=== PATIENT | female | born 1960 | race Two or more races ===

== ENCOUNTER → 2019-01-31 17:55 | Outpatient (CLI) | payer BC ==
[2019-01-31 20:24] LABS: HEMATOCRIT 27.7 % (36.0-48.0); HEMOGLOBIN 8.5 g/dL (12-16); MCH 26.2 pg (26.0-34.0); MCHC 30.7 g/dL (31.0-37.0); MCV 85.2 fL (80.0-100.0); RBC 3.25 10x6/uL (4.00-5.40)
[2019-01-31 20:38] LABS: CALC OSMOLALITY 278 mosm/kg (275-300); CALCIUM 7.7 mg/dL (8.5-10.1); CARBON DIOXIDE 31.5 mmol/L (21.0-32.0); CHLORIDE - SERUM 101 mmol/L (98-107); CREATININE - SERUM 0.5 mg/dL (0.6-1.3); GLUCOSE 109 mg/dL (74-106); POTASSIUM - SERUM 4.4 mmol/L (3.5-5.1); SODIUM 139 mmol/L (136-145); UREA NITROGEN 13 mg/dL (7-18); eGFR NON AFRICAN AMERICAN > 90 mL/min (90-120)
[2019-01-31 20:42] LABS: MEAN PLATELET VOLUME 11.1 fL (7.4-10.4); PLATELET COUNT 524 10x3/uL (130-400); RDW 18.1 % (11.5-14.5); WBC 7.5 10x3/uL (4.8-10.8)
[2019-01-31 21:45] LABS: EOSINOPHILS 3 % (0-7); LYMPHOCYTES 30 % (15-50); NEUTROPHILS 59 % (40-80); PLATELET ESTIMATE INCREASED
== END | disposition home or self-care (01) ==
LOC: D.LABREF 17:55
PROVIDERS: ATTEND Family Medicine
DX: C50.919 Malignant neoplasm of unspecified site of unspecified female breast (principal)

== ENCOUNTER 2019-05-15 14:48 | Inpatient (IN) | payer BC ==
[~2019-05-15] VITALS: Ht 172.7 cm; Wt 59.9 kg
[2019-05-15 16:51] LABS: BASOPHILS 0.6 % (0-2); HEMATOCRIT 27.8 % (36.0-48.0); HEMOGLOBIN 8.3 g/dL (12-16); LYMPHOCYTES 18.2 % (15-50); MCH 28.4 pg (26.0-34.0); MCHC 29.9 g/dL (31.0-37.0); MCV 95.2 fL (80.0-100.0); MEAN PLATELET VOLUME 9.1 fL (7.4-10.4); MONOCYTES 10.8 % (2-11); NEUTROPHILS 68.4 % (40-80); PLATELET COUNT 445 10x3/uL (130-400); RBC 2.92 10x6/uL (4.00-5.40); RDW 20.7 % (11.5-14.5); WBC 6.2 10x3/uL (4.8-10.8)
[2019-05-15 17:12] LABS: CALC OSMOLALITY 271 mosm/kg (275-300); CALCIUM 8.1 mg/dL (8.5-10.1); CARBON DIOXIDE 28.8 mmol/L (21.0-32.0); CHLORIDE - SERUM 102 mmol/L (98-107); CREATININE - SERUM 0.4 mg/dL (0.6-1.3); GLUCOSE 91 mg/dL (74-106); POTASSIUM - SERUM 3.6 mmol/L (3.5-5.1); SODIUM 137 mmol/L (136-145); UREA NITROGEN 7 mg/dL (7-18); eGFR NON AFRICAN AMERICAN > 90 mL/min (90-120)
[2019-05-15 17:13] LABS: INR 1.84 (0.85-1.17); PROTIME 20.6 SECONDS (11.6-15.0)
[2019-05-15 17:27] LABS: D-DIMER-QUANTITATIVE 4.21 ug/mLFEU (0.20-0.54)
[2019-05-15 17:29] LABS: ALBUMIN 1.9 g/dL (3.4-5.0); ALKALINE PHOSPHATASE 674 U/L (46-116); ALT (SGPT) 33 U/L (10-68); BILIRUBIN - TOTAL 0.35 mg/dL (0.2-1.3); CKMB 0.1 U/L (0.0-3.6); CREATINE KINASE 86 UL (21-215); PROTEIN - SERUM 6.6 g/dL (6.4-8.2); TROPONIN-I < 0.017 ng/mL (0.000-0.060)
[2019-05-15 18:41] LABS: APPEARANCE CLEAR (CLEAR); BILIRUBIN NEGATIVE (NEGATIVE); COLOR YELLOW (YELLOW); GLUCOSE NEGATIVE (NEGATIVE); KETONE NEGATIVE (NEGATIVE); NITRITE NEGATIVE (NEGATIVE); PROTEIN NEGATIVE (NEGATIVE); UROBILINOGEN NORMAL (NORMAL)
[2019-05-15 19:00] VITALS: BP 112/69
[2019-05-15 20:00] VITALS: BP 109/69
[2019-05-15 21:00] VITALS: BP 127/78
--- NOTE | 2019-05-15 22:30 | NUR ---
RECIEVED TO FLOOR, ACCOMPANIED BY STAFF AND SPOUSE. A&0 X 4. AMBULATES TO BED, 1 PERSON ASSIST. FALL RISK BAND APPLIED, HOMERO IN PLACE. REQUESTS SANDWICH AND BOOST. INFORMED OF NPO STATUS AFTER MIDNIGHT. DENIES NEEDS AT THIS TIME. TELEMETRY APPLIED, [address]. WILL CONTINUE TO MONITOR.
[2019-05-15 22:49] VITALS: BP 113/74; BMI 20.1
[2019-05-16] MEDS ORDERED: XELODA500 MG PO (01:02)
[2019-05-16] MEDS ORDERED: ELIQUIS5 MG PO (01:03)
[2019-05-16] MEDS ORDERED: RITALIN10 MG PO (01:03)
[2019-05-16] MEDS ORDERED: MORPHINE IMMEDI15 MG PO (01:04)
[2019-05-16] MEDS ORDERED: REGLAN10 MG PO (01:04)
[2019-05-16] MEDS ORDERED: MS CONTIN60 MG PO (01:04)
[2019-05-16] MEDS ORDERED: GAVILAX510 GM PO (01:05)
[2019-05-16] MEDS ORDERED: ZOFRAN8 MG PO (01:05)
[2019-05-16] MEDS ORDERED: CELEXA20 MG PO (01:05)
[2019-05-16] MEDS ORDERED: [UNRECOGNIZED DRUG - OTHER] PO (01:06)
[2019-05-16] MEDS ORDERED: AMOXICILLIN875 MG (01:06)
[2019-05-16] MEDS ORDERED: NARCAN (01:06)
[2019-05-16 02:26] VITALS: BP 171/100
[2019-05-16 05:51] VITALS: BP 146/78
[2019-05-16 06:59] LABS: BASOPHILS 0.5 % (0-2); EOSINOPHILS 0.6 % (0-7); HEMATOCRIT 31.1 % (36.0-48.0); IMMATURE GRANULOCYTES 1.3 % (0-5); LYMPHOCYTES 14.7 % (15-50); MCH 27.5 pg (26.0-34.0); MCHC 28.9 g/dL (31.0-37.0); MCV 95.1 fL (80.0-100.0); MEAN PLATELET VOLUME 9.7 fL (7.4-10.4); MONOCYTES 12.2 % (2-11); NEUTROPHILS 70.7 % (40-80); PLATELET COUNT 494 10x3/uL (130-400); RBC 3.27 10x6/uL (4.00-5.40); RDW 21.2 % (11.5-14.5); WBC 6.3 10x3/uL (4.8-10.8)
[2019-05-16 07:29] LABS: CALC OSMOLALITY 272 mosm/kg (275-300); CALCIUM 8.4 mg/dL (8.5-10.1); CARBON DIOXIDE 30.6 mmol/L (21.0-32.0); CHLORIDE - SERUM 101 mmol/L (98-107); CREATININE - SERUM 0.3 mg/dL (0.6-1.3); GLUCOSE 97 mg/dL (74-106); MAGNESIUM - SERUM 1.9 mg/dL (1.8-2.4); PHOSPHOROUS 3.7 mg/dL (2.5-4.9); POTASSIUM - SERUM 3.8 mmol/L (3.5-5.1); SODIUM 138 mmol/L (136-145); eGFR NON AFRICAN AMERICAN > 90 mL/min (90-120)
--- NOTE | 2019-05-16 07:30 | NUR ---
BEDSIDE REPORT RECIEVED ASSUMED CARE. PATIENT IN BED WITH IV INTACT. NPO FOR POSSIBLE PROCEDURE. IV INTACT. CALL LIGHT WITHIN REACH. DENIES ANY NEEDS AT THIS TIME.
[2019-05-16 07:31] LABS: UREA NITROGEN 5 mg/dL (7-18)
[2019-05-16 08:24] VITALS: BP 129/85
--- NOTE | 2019-05-16 10:15 | NUR ---
STUDENTS INSTRUCTOR STATED SHE WAS GOING TO LOOK AND SEE IF PATIENT COULD RECIEVE ATIVAN BECAUSE SHE IS FEELING ANXIOUS AND IT HAS WORKED IN THE PAST. STATED SHE WILL CHECK HER EMAR.
--- NOTE | 2019-05-16 11:00 | NUR ---
SPOKE WITH JOHNATHON ABOUT ATIVAN. NEW ORDERS RECIEVED AND CARRIED OUT.
--- NOTE | 2019-05-16 11:20 | NUR ---
PATIENT RECIEVED ATIVAN 0.25 MG PO AND DILAUDID IVP FOR PAIN. PUSHED SLOWLY OVER 2 MIN. PATIENT HAS NO OTHER COMPLAINTS. CALL LIGHT WITHIN REACH. FAMILY AT BEDSIDE.
[2019-05-16 12:21] VITALS: BP 136/84
[2019-05-16 13:33] LABS: INR 1.51 (0.85-1.17); PROTIME 17.6 SECONDS (11.6-15.0)
--- NOTE | 2019-05-16 13:50 | NUR ---
PHYSICIAN AND INSIDE SOLAR SALES CONSULTANT ROUNDING ON PATIENT.
--- NOTE | 2019-05-16 15:14 | NUR ---
PATIENT RECIEVED SCHEDULED MORPHINE FOR PAIN AT THIS TIME. IV INTACT. PATIENT RESTLESS AND HURTING. FAMILY AT BEDSIDE. WILL CONTINUE TO MONITOR.
[2019-05-16 15:56] VITALS: BP 143/93
--- NOTE | 2019-05-16 16:42 | NUR ---
PATIENT STATED SHE IS HURTING BAD STILL AND NEEDS SOMETHING ELSE. GAVE DILAUDID IVP SLOWLY OVER 2 MINUTES AT THIS TIME. PATIENT DAUGHTER AT BEDSIDE. NO OTHER NEEDS AT THIS TIME. CALL LIGHT WITHIN REACH.
[2019-05-16 16:59] VITALS: Ht 172.7 cm; Wt 59.9 kg
[2019-05-16 17:29] LABS: CREATINE KINASE 112 UL (21-215)
[2019-05-16 17:32] LABS: TROPONIN-I < 0.017 ng/mL (0.000-0.060)
--- NOTE | 2019-05-16 18:45 | NUR ---
PATIENT IN BED WITH EYES CLOSED RESTING QUIETLY. IV INTACT. FAMILY AT BEDSIDE. CALL LIGHT WITHIN REACH.
[2019-05-16 19:00] VITALS: BP 123/81
--- NOTE | 2019-05-16 21:00 | NUR ---
ORIENTED X 4, WAS SLEEPING WHEN ENTERED ROOM, BUT REPORTS PAIN OF 8/10. CONSENTS SIGNED BY , PER PT REQUEST, WHO IS POWER OF TURF AND GROUNDS SUPERVISOR. WILL CONTINUE TO MONITOR.
[2019-05-16 23:06] LABS: CKMB 0.1 U/L (0.0-3.6); CREATINE KINASE 105 UL (21-215)
[2019-05-16 23:12] LABS: TROPONIN-I < 0.017 ng/mL (0.000-0.060)
[2019-05-17] VITALS (12 sets, daily range): BP systolic 112–184; BP diastolic 73–86
[2019-05-17 06:37] LABS: BASOPHILS 0.2 % (0-2); EOSINOPHILS 0 % (0-7); HEMATOCRIT 30.2 % (36.0-48.0); HEMOGLOBIN 8.9 g/dL (12-16); IMMATURE GRANULOCYTES 0.8 % (0-5); LYMPHOCYTES 10.4 % (15-50); MCH 28.3 pg (26.0-34.0); MCHC 29.5 g/dL (31.0-37.0); MCV 95.9 fL (80.0-100.0); MEAN PLATELET VOLUME 9.8 fL (7.4-10.4); MONOCYTES 1.8 % (2-11); NEUTROPHILS 86.8 % (40-80); PLATELET COUNT 492 10x3/uL (130-400); RBC 3.15 10x6/uL (4.00-5.40); RDW 21.6 % (11.5-14.5); WBC 6.6 10x3/uL (4.8-10.8)
[2019-05-17 07:12] LABS: INR 1.39 (0.85-1.17); PROTIME 16.4 SECONDS (11.6-15.0)
[2019-05-17 07:28] LABS: APTT 33.7 SECONDS (22.8-39.4)
[2019-05-17 07:30] LABS: CALC OSMOLALITY 276 mosm/kg (275-300); CALCIUM 7.9 mg/dL (8.5-10.1); CARBON DIOXIDE 27.5 mmol/L (21.0-32.0); CHLORIDE - SERUM 102 mmol/L (98-107); CKMB 0.1 U/L (0.0-3.6); GLUCOSE 130 mg/dL (74-106); MAGNESIUM - SERUM 2.1 mg/dL (1.8-2.4); POTASSIUM - SERUM 3.8 mmol/L (3.5-5.1); SODIUM 139 mmol/L (136-145); TROPONIN-I < 0.017 ng/mL (0.000-0.060); UREA NITROGEN 5 mg/dL (7-18)
[2019-05-17 07:33] LABS: CREATININE - SERUM 0.4 mg/dL (0.6-1.3); eGFR NON AFRICAN AMERICAN > 90 mL/min (90-120)
[2019-05-17 07:43] LABS: CREATINE KINASE 92 UL (21-215); LDH 232 U/L (81-234); PHOSPHOROUS 3.7 mg/dL (2.5-4.9)
--- NOTE | 2019-05-17 07:46 | NUR ---
PT RESTING IN BED. NO SIGNS OF DISTRESS. LEFT CHEST PORT PATENT NO REDNESS OR TENDERNESS. DENIES ANY FURTHER NEED AT THIS TIME. CALL LIGHT IN REACH. BED LOW POSITION. NO FAMILY AT BEDSIDE AT THIS TIME.
[2019-05-17 15:53] LABS: PROTEIN - BODY FLUID 3.1 G/DL
[2019-05-17 16:39] LABS: EOS BF 2 %; MACROPHAGES BF 41 %; MESOTHELIALS BF 1 %; NEUT - BF 41 %
--- NOTE | 2019-05-17 17:00 | NUR ---
PT IS WITHOUT DISTRESS.FAMILY TO VISIT.CALL LIGHT IN REACH
--- NOTE | 2019-05-17 17:44 | NUR ---
CHANGED DRESSING TO PORT. REMOVED DRESSING, CLEANED SITE. APPLIED NEW DRESSING PER STERILE TECHNIQUE.
--- NOTE | 2019-05-17 18:42 | NUR ---
ALERT AND ORIENTED, RESTING IN BED. C/O PAIN 09/24, GAVE MORPHINE TAB FOR PAIN. NO S/S OF ACUTE DISTRESS NOTED. CHANGED BED LINEN. DENIES ANY NEEDS AT THIS TIME. WILL CONTINUE TO MONITOR.
--- NOTE | 2019-05-17 22:22 | NUR ---
A&O X 4. DENIES PAIN CURRENTLY. AT BEDSIDE. REPORTS BREATHING HAS GOTTEN EASIER SINCE THORACENTESIS. HAS SOME URGENCY AND FREQUENCY OF URINE, CAUSING INCONTINENCE, BUT DENIES CURRENT NEEDS. WILL CONTINUE TO MONITOR.
[2019-05-18] VITALS: BP 100/67
--- NOTE | 2019-05-18 03:47 | NUR ---
I have reviewed this patient and I concur with the Shift Assessment completed by the Licensed Practical Nurse today this shift.
[2019-05-18 04:00] VITALS: BP 125/81
[2019-05-18 06:55] LABS: BASOPHILS 0 % (0-2); EOSINOPHILS 0 % (0-7); HEMATOCRIT 31.5 % (36.0-48.0); IMMATURE GRANULOCYTES 0.6 % (0-5); MCH 28.2 pg (26.0-34.0); MCHC 28.6 g/dL (31.0-37.0); MEAN PLATELET VOLUME 9.8 fL (7.4-10.4); MONOCYTES 4.7 % (2-11); NEUTROPHILS 87.7 % (40-80); PLATELET COUNT 538 10x3/uL (130-400); RBC 3.19 10x6/uL (4.00-5.40); RDW 21.7 % (11.5-14.5)
[2019-05-18 06:59] LABS: MCV 98.7 fL (80.0-100.0); WBC 10.6 10x3/uL (4.8-10.8)
[2019-05-18 07:10] LABS: CALC OSMOLALITY 282 mosm/kg (275-300); CALCIUM 8.2 mg/dL (8.5-10.1); CHLORIDE - SERUM 104 mmol/L (98-107); CREATININE - SERUM 0.5 mg/dL (0.6-1.3); GLUCOSE 126 mg/dL (74-106); MAGNESIUM - SERUM 2.1 mg/dL (1.8-2.4); PHOSPHOROUS 3.3 mg/dL (2.5-4.9); POTASSIUM - SERUM 4.1 mmol/L (3.5-5.1); SODIUM 141 mmol/L (136-145); eGFR NON AFRICAN AMERICAN > 90 mL/min (90-120)
[2019-05-18 07:11] LABS: UREA NITROGEN 12 mg/dL (7-18)
--- NOTE | 2019-05-18 07:30 | NUR ---
BEDSIDE REPORT RECIEVED ASSUMED CARE. PATIENT IN BED WITH IV INTACT. NO COMPLAINTS OR SIGNS OF DISTRESS. STATED SHE WOULD LIKE PAIN MEDS SOON AVAILABLE. CALL LIGHT WITHIN REACH.
--- NOTE | 2019-05-18 08:00 | NUR ---
GAVE SCHEDULED MED AND PAIN MED AT THIS TIME. ASSESSMENT COMPLETE. PATIENT IN BED WITH IV INTACT WITH NO COMPLAINTS. REFUSES SCDS, ON LOVENOX. CALL LIGHT WITHIN REACH. WILL CONTINUE TO MONITOR.
[2019-05-18 08:12] VITALS: BP 131/84
--- NOTE | 2019-05-18 10:20 | NUR ---
PATIENT RECIEVED DILAUDID 1 MG IVP SLOWLY OVER 2 MIN. CALL LIGHT WITHIN REACH.
--- NOTE | 2019-05-18 12:30 | NUR ---
PATIENT SITTING UP IN BED EATING WITH NO COMPLAINTS. IV INTACT. CALL LIGHT WITHIN REACH.
[2019-05-18 13:26] VITALS: BP 149/84
[2019-05-18 15:09] LABS: FUNGUS STAIN Final report (())
--- NOTE | 2019-05-18 15:36 | MORECARE ---
CASE MANAGEMENT DISCHARGE SUMMARY PATIENT: KAYLA MORRISON UNIT: [id number] ADM DATE: 05/16/19 AGE: 58 : 56 SEX: F ROOM/BED: D.2222 AUTHOR: ARLEN CRAWFORD PHYSICIAN: REFERRING PHYSICIAN: ELIO HAMMER DO DATE OF SERVICE: 05/18/19 Discharge Plan Patient Name: KAYLA MORRISON Facility: [facility]:[place] : 1960 Planned Disposition: Home Anticipated Discharge Date: 05/19/19 Discharge Date: Expected LOS: 3 Initial Reviewer: [email or web address] Initial Review Date: 05/15/2019 Generated: 05/18/19 4:36 pm Comments DCP- Discharge Planning Updated by [email or web address]: Elisabet Contreras on 05/18/19 2:[address] DC PLAN: Return home with family and resumption of Care [facility]. ANTICIPATED DC NEEDS: Resumption [facility]. CM met with patient and her daughter to complete initial dc planning assessment. CM educated patient on the CM role and verbal consent given by patient to complete assessment. CM verified patient's address, phone number, and emergency contact phone numbers. Patient lives at home with her , two daughters and one granddaughter. Patient currently has [facility] and wishes to resume at discharge. [facility] form signed by patient for resumption of [facility]. Signed form placed in chart and signed form given to patient. At discharge patient plans to return home and feels this is a safe discharge. Patient denied further known discharge needs at this time. . Patient reports her or daughter will transport him/her home at time of discharge.CM will continue to follow and will assist as needed with dc plans/needs. Elisabet Contreras RN, CCM DCP- Discharge Planning Updated by [id number]: Yudelka Denny on 05/18/19 2:[address] Updated clinical faxed to [facility]. CM will continue to follow and assist with discharge planning/needs. DCPIA - Discharge Planning Initial Assessment Updated by [id number]: Elisabet Contreras on 05/18/19 3:31 pm * Is the patient Alert and Oriented? Yes * How many steps to enter\exit or inside your home? two * PCP Dr. Astudillo * Pharmacy [facility] * Preadmission Environment Home with Family * ADLs Partial Dependent * Partial ADLs (Assistance needed) Bathing Dressing Transfers * Equipment Bedside Commode Oxygen Rolling Walker * List name and contact numbers for known caregivers / representatives who currently or will assist patient after discharge: Tomy Morrison - spouse - [phone] * Verbal permission to speak to the caregivers and representatives has been obtained from the patient. Yes * Community resources currently utilized Home Health * Please name any agencies selected above. [facility] - [facility] signed for resumption * Additional services required to return to the preadmission environment? No * Can the patient safely return to the preadmission environment? Yes * Has this patient been hospitalized within the prior 30 days at any hospital? No External Providers External Provider: [facility] Next Contact Date: Service Request Date: Service Type: Resolution: Reviewer: Comments: Patient Name: KAYLA MORRISON Page [phone] at 1536 All edits/amendments must be made on the electronic document DICTATION DATE: 05/18/19 1536 GENETICIST: JER 05/18/19 1536 RPT#: [id number] DC DATE: STATUS: ADM IN [facility] [address] [place] [address] END OF REPORT
[2019-05-18 16:13] VITALS: BP 140/95
--- NOTE | 2019-05-18 16:30 | NUR ---
PATIENT IN BED WITH IV INTACT. NO COMPLAINTS OR SIGNS OF DISTRESS. CALL LIGHT WITHIN REACH.
[2019-05-18 17:08] LABS: ACID FAST SMEAR Negative (()); AFB SPECIMEN PROCESSING Not Indicated (())
--- NOTE | 2019-05-18 18:20 | NUR ---
PATIENT RECIEVED MORPHINE IR AND VANC. IV INTACT. FAMILY AT BEDSIDE. CALL LIGHT WITHIN REACH.
[2019-05-18 19:53] VITALS: BP 137/84
[2019-05-19] VITALS: BP 136/84
[2019-05-19 04:00] VITALS: BP 140/90
[2019-05-19 06:31] LABS: BASOPHILS 0.1 % (0-2); EOSINOPHILS 0.1 % (0-7); HEMATOCRIT 31.5 % (36.0-48.0); HEMOGLOBIN 9.3 g/dL (12-16); IMMATURE GRANULOCYTES 1.1 % (0-5); LYMPHOCYTES 12.6 % (15-50); MCH 28.9 pg (26.0-34.0); MCHC 29.5 g/dL (31.0-37.0); MCV 97.8 fL (80.0-100.0); MEAN PLATELET VOLUME 9.4 fL (7.4-10.4); MONOCYTES 13.7 % (2-11); NEUTROPHILS 72.4 % (40-80); PLATELET COUNT 542 10x3/uL (130-400); RBC 3.22 10x6/uL (4.00-5.40); RDW 22.1 % (11.5-14.5); WBC 13.1 10x3/uL (4.8-10.8)
[2019-05-19 06:39] LABS: CALC OSMOLALITY 279 mosm/kg (275-300); CALCIUM 7.7 mg/dL (8.5-10.1); CARBON DIOXIDE 31.7 mmol/L (21.0-32.0); CHLORIDE - SERUM 102 mmol/L (98-107); CREATININE - SERUM 0.5 mg/dL (0.6-1.3); GLUCOSE 101 mg/dL (74-106); MAGNESIUM - SERUM 2.1 mg/dL (1.8-2.4); PHOSPHOROUS 3.3 mg/dL (2.5-4.9); POTASSIUM - SERUM 3.8 mmol/L (3.5-5.1); SODIUM 140 mmol/L (136-145); UREA NITROGEN 15 mg/dL (7-18); eGFR NON AFRICAN AMERICAN > 90 mL/min (90-120)
[2019-05-19 08:12] VITALS: BP 142/85
--- NOTE | 2019-05-19 08:51 | NUR ---
PT HAD ECHO COMPLETED ON 05/16/19 PENDING REPORT, CALLED [facility] AND WAS ADVISED PHYSICIAN SHOULD HAVE READ REPORT AND WOULD BE IN CHART. PAGED LADELL
--- NOTE | 2019-05-19 08:56 | NUR ---
SPOKE TO MICHELLE Playsino WHO STATES THAT REPORT SHOULD BE UNDER OTHER REPORTS, NO ECHO IN THOSE REPORTS EITHER, CALLED [facility] FOR THERAPY TEACHER NUMBER NO ANSWER. WILL REORDER ECHO IF NEEDED
--- NOTE | 2019-05-19 09:21 | NUR ---
PT LYING IN BED, NO FAMILY AT BEDSIDE, ADMNINISTERED AM SCHEDULED MEDS AND PRN PAIN MEDICATION, CONTINUE WIOTH PLAN OF CARE
--- NOTE | 2019-05-19 11:01 | NUR ---
I have reviewed this patient and I concur with the Shift Assessment completed by the Licensed Practical Nurse today this shift.
[2019-05-19 13:33] VITALS: BP 114/80
[2019-05-19 16:23] VITALS: BP 122/82
[2019-05-19 19:49] VITALS: BP 123/88
[2019-05-20] VITALS: BP 143/88
[2019-05-20 04:00] VITALS: BP 127/83
[2019-05-20 06:32] LABS: BASOPHILS 0 % (0-2); EOSINOPHILS 0 % (0-7); HEMATOCRIT 30.5 % (36.0-48.0); HEMOGLOBIN 8.9 g/dL (12-16); IMMATURE GRANULOCYTES 0.4 % (0-5); LYMPHOCYTES 9.1 % (15-50); MCH 28.1 pg (26.0-34.0); MCHC 29.2 g/dL (31.0-37.0); MCV 96.2 fL (80.0-100.0); MONOCYTES 11.3 % (2-11); NEUTROPHILS 79.2 % (40-80); RBC 3.17 10x6/uL (4.00-5.40); RDW 21.5 % (11.5-14.5); WBC 11.4 10x3/uL (4.8-10.8)
[2019-05-20 06:36] LABS: PLATELET COUNT 384 10x3/uL (130-400)
[2019-05-20 06:57] LABS: CALC OSMOLALITY 279 mosm/kg (275-300); CALCIUM 7.6 mg/dL (8.5-10.1); CARBON DIOXIDE 28.6 mmol/L (21.0-32.0); CHLORIDE - SERUM 103 mmol/L (98-107); CREATININE - SERUM 0.4 mg/dL (0.6-1.3); GLUCOSE 116 mg/dL (74-106); MAGNESIUM - SERUM 2.1 mg/dL (1.8-2.4); PHOSPHOROUS 3.3 mg/dL (2.5-4.9); SODIUM 139 mmol/L (136-145); UREA NITROGEN 14 mg/dL (7-18); eGFR NON AFRICAN AMERICAN > 90 mL/min (90-120)
[2019-05-20 08:09] VITALS: BP 126/83
--- NOTE | 2019-05-20 09:48 | NUR ---
PT AWAKE AND MORE ALERT TODAY, DAUGHTER AT BEDSIDE, PT REQUESTED SHOWER THIS MORNING, ADMINISTERED PRN PAIN MEDICATION WITH MORNING MEDS, NO OTHER NEEDS VOICED, CONTINUE WITH PLAN OF CARE
--- NOTE | 2019-05-20 11:55 | MORECARE ---
CASE MANAGEMENT DISCHARGE SUMMARY PATIENT: KAYLA MORRISON UNIT: [id number] ADM DATE: 05/16/19 AGE: 58 : 56 SEX: F ROOM/BED: D.2222 AUTHOR: ARLEN CRAWFORD PHYSICIAN: REFERRING PHYSICIAN: ELIO HAMMER DO DATE OF SERVICE: 05/20/19 Discharge Plan Patient Name: KAYLA MORRISON Facility: [facility]:[place] : 1960 Planned Disposition: Home Anticipated Discharge Date: 05/19/19 Discharge Date: Expected LOS: 3 Initial Reviewer: [email or web address] Initial Review Date: 05/15/2019 Generated: 05/20/19 12:55 pm Comments DCP- Discharge Planning Updated by [id number]: Elisabet Contreras on 05/18/19 3:[address] DC PLAN: Return home with family and resumption of Care [facility] HH. ANTICIPATED DC NEEDS: Resumption [facility]. CM met with patient and her daughter to complete initial dc planning assessment. CM educated patient on the CM role and verbal consent given by patient to complete assessment. CM verified patient's address, phone number, and emergency contact phone numbers. Patient lives at home with her , two daughters and one granddaughter. Patient currently has [facility] and wishes to resume at discharge. [facility] form signed by patient for resumption of [facility]. Signed form placed in chart and signed form given to patient. At discharge patient plans to return home and feels this is a safe discharge. Patient denied further known discharge needs at this time. . Patient reports her or daughter will transport him/her home at time of discharge.CM will continue to follow and will assist as needed with dc plans/needs. Elisabet Contreras RN, CCM DCP- Discharge Planning Updated by [id number]: Yudelka Denny on 05/18/19 3:[address] Updated clinical faxed to [facility] . CM will continue to follow and assist with discharge planning/needs. DCPIA - Discharge Planning Initial Assessment Updated by [id number]: Elisabet Contreras on 05/18/19 3:31 pm * Is the patient Alert and Oriented? Yes * How many steps to enter\exit or inside your home? two * PCP Dr. Astudillo * Pharmacy [facility] * Preadmission Environment Home with Family * ADLs Partial Dependent * Partial ADLs (Assistance needed) Bathing Dressing Transfers * Equipment Bedside Commode Oxygen Rolling Walker * List name and contact numbers for known caregivers / representatives who currently or will assist patient after discharge: Tomy Morrison - spouse - [phone] * Verbal permission to speak to the caregivers and representatives has been obtained from the patient. Yes * Community resources currently utilized Home Health * Please name any agencies selected above. [facility] - [facility] signed for resumption * Additional services required to return to the preadmission environment? No * Can the patient safely return to the preadmission environment? Yes * Has this patient been hospitalized within the prior 30 days at any hospital? No External Providers External Provider: Gissell Jones Contact Date: Service Request Date: Service Type: Resolution: Reviewer: Comments: Last DP export: 05/18/19 3:36 p Patient Name: KAYLA MORRISON Page [phone] at 1155 All edits/amendments must be made on the electronic document DICTATION DATE: 05/20/19 1155 INTERNAL CONTROL SPECIALIST: JER 05/20/19 1155 RPT#: [id number] DC DATE: STATUS: ADM IN [facility] [address] [place] [address] END OF REPORT
[2019-05-20 12:28] VITALS: BP 121/61
--- NOTE | 2019-05-20 14:15 | MORECARE ---
CASE MANAGEMENT DISCHARGE SUMMARY PATIENT: KAYLA MORRISON UNIT: [id number] ADM DATE: 05/16/19 AGE: 58 : 56 SEX: F ROOM/BED: D.2222 AUTHOR: ARLEN CRAWFORD PHYSICIAN: REFERRING PHYSICIAN: ELIO HAMMER DO DATE OF SERVICE: 05/20/19 Discharge Plan Patient Name: KAYLA MORRISON Facility: [facility]:[place] : 1960 Planned Disposition: Home Anticipated Discharge Date: 05/19/19 Discharge Date: Expected LOS: 3 Initial Reviewer: [email or web address] Initial Review Date: 05/15/2019 Generated: 05/20/19 3:15 pm Comments DCP- Discharge Planning Updated by [id number]: Patti Wolfe on 05/20/19 1:[address] Patient Name: KAYLA MORRISON Admission Status: ER Accout number: [id number] Admission Date: 05-16-2019 : 1960 Admission Diagnosis:MALIGNANT NEOPLASM OF UNSP SITE OF UNSPECIFIED FEMALE B Attending: ELIO HAMMER Current LOS: 4 Anticipated DC Date: 05-19-2019 Planned Disposition: Home Primary Insurance: [employer] EXCHANGE Discharge Planning Comments: I CALLED [facility] AND FAXED THEM DOCUMENTS FOR PORTABLE 02. WAITING FOR CALL BACK FROM [facility]. Director Of Cardiopulmonary Services: Patti Wolfe DCP- Discharge Planning Updated by [id number]: Elisabetrebekah Contreras on 05/18/19 3:[address] DC PLAN: Return home with family and resumption of Care IV HH. ANTICIPATED DC NEEDS: Resumption [facility]. CM met with patient and her daughter to complete initial dc planning assessment. CM educated patient on the CM role and verbal consent given by patient to complete assessment. CM verified patient's address, phone number, and emergency contact phone numbers. Patient lives at home with her , two daughters and one granddaughter. Patient currently has [facility] and wishes to resume at discharge. [facility] form signed by patient for resumption of [facility] Home Health. Signed form placed in chart and signed form given to patient. At discharge patient plans to return home and feels this is a safe discharge. Patient denied further known discharge needs at this time. . Patient reports her or daughter will transport him/her home at time of discharge.CM will continue to follow and will assist as needed with dc plans/needs. Elisabet Contreras RN, CCM DCP- Discharge Planning Updated by [id number]: Yudelka Denny on 05/18/19 3:[address] Updated clinical faxed to [facility]. CM will continue to follow and assist with discharge planning/needs. DCPIA - Discharge Planning Initial Assessment Updated by [id number]: Elisabet Contreras on 05/18/19 3:31 pm * Is the patient Alert and Oriented? Yes * How many steps to enter\exit or inside your home? two * PCP Dr. Astudillo * Pharmacy [facility] * Preadmission Environment Home with Family * ADLs Partial Dependent * Partial ADLs (Assistance needed) Bathing Dressing Transfers * Equipment Bedside Commode Oxygen Rolling Walker * List name and contact numbers for known caregivers / representatives who currently or will assist patient after discharge: Tomy Morrison - spouse - [phone] * Verbal permission to speak to the caregivers and representatives has been obtained from the patient. Yes * Community resources currently utilized Home Health * Please name any agencies selected above. [facility] - [facility] signed for resumption * Additional services required to return to the preadmission environment? No * Can the patient safely return to the preadmission environment? Yes * Has this patient been hospitalized within the prior 30 days at any hospital? No Last DP export: 05/20/19 10:55 a Patient Name: KAYLA MORRISON Page 10490 at 1415 All edits/amendments must be made on the electronic document DICTATION DATE: 05/20/19 141 SHEET METAL SUPERVISOR: JER 05/20/19 1415 RPT#: [id number] DC DATE: STATUS: ADM IN [facility] [address] [place] [address] END OF REPORT
--- NOTE | 2019-05-20 15:56 | NUR ---
I have reviewed this patient and I concur with the Shift Assessment completed by the Licensed Practical Nurse today this shift.
[2019-05-20 16:54] VITALS: BP 118/66
[2019-05-20 20:47] VITALS: BP 124/74
[2019-05-21 00:58] VITALS: BP 111/77
[2019-05-21 05:55] VITALS: BP 123/80
[2019-05-21 07:42] LABS: BASOPHILS 0 % (0-2); EOSINOPHILS 0 % (0-7); HEMATOCRIT 29.7 % (36.0-48.0); HEMOGLOBIN 8.9 g/dL (12-16); IMMATURE GRANULOCYTES 0.5 % (0-5); LYMPHOCYTES 6.3 % (15-50); MCH 28.4 pg (26.0-34.0); MCV 94.9 fL (80.0-100.0); MEAN PLATELET VOLUME 9.4 fL (7.4-10.4); MONOCYTES 6.9 % (2-11); NEUTROPHILS 86.3 % (40-80); PLATELET COUNT 371 10x3/uL (130-400); RBC 3.13 10x6/uL (4.00-5.40); RDW 21.3 % (11.5-14.5); WBC 12.3 10x3/uL (4.8-10.8)
[2019-05-21 07:49] LABS: ALBUMIN 1.7 g/dL (3.4-5.0); ALT (SGPT) 48 U/L (10-68); BILIRUBIN - TOTAL 0.57 mg/dL (0.2-1.3); CALC OSMOLALITY 275 mosm/kg (275-300); CALCIUM 7.7 mg/dL (8.5-10.1); CARBON DIOXIDE 26.6 mmol/L (21.0-32.0); CHLORIDE - SERUM 102 mmol/L (98-107); CREATININE - SERUM 0.3 mg/dL (0.6-1.3); GLUCOSE 124 mg/dL (74-106); PROTEIN - SERUM 6.1 g/dL (6.4-8.2); SODIUM 138 mmol/L (136-145); UREA NITROGEN 11 mg/dL (7-18); eGFR NON AFRICAN AMERICAN > 90 mL/min (90-120)
[2019-05-21 08:06] LABS: ALKALINE PHOSPHATASE 1062 U/L (46-116)
[2019-05-21 08:51] VITALS: BP 116/70
--- NOTE | 2019-05-21 10:14 | NUR ---
ALERT AND ORIENTED. RLL DIMINISHED. HEART SOUNDS S1 AND S2 HEARD IN ALL MANNING. BOWEL SOUNDS ACTIVE X 4. LEFT PORT PATENT WITHOUT REDNESS. SKIN INTACT WITHOUT REDNESS. DENIES NEEDS. BED LOW. CALL SOTELO AND PERSONAL ITEMS IN REACH. WILL CONTINUE TO MONITOR.
[2019-05-21 12:30] VITALS: BP 122/75
[2019-05-21] MEDS ORDERED: OMNICEF300 MG PO (12:51)
--- NOTE | 2019-05-21 13:24 | NUR ---
RESTING IN BED. DENIES NEEDS. WILL CONTINUE TO MONITOR.
--- NOTE | 2019-05-21 13:24 | MORECARE ---
CASE MANAGEMENT DISCHARGE SUMMARY PATIENT: KAYLA MORRISON UNIT: [id number] ADM DATE: 05/16/19 AGE: 58 : 56 SEX: F ROOM/BED: D.2222 AUTHOR: ARLEN CRAWFORD PHYSICIAN: REFERRING PHYSICIAN: ELIO HAMMER DO DATE OF SERVICE: 05/21/19 Discharge Plan Patient Name: KAYLA MORRISON Facility: [facility]:[place] : 1960 Planned Disposition: Home Anticipated Discharge Date: 05/19/19 Discharge Date: Expected LOS: 3 Initial Reviewer: [email or web address] Initial Review Date: 05/15/2019 Generated: 05/21/19 2:24 pm Comments DCP- Discharge Planning Updated by [id number]: Yudelka Denny on 05/21/19 12:[address] Patient Name: KAYLA MORRISON Encounter No: [id number] : 1960 Primary Insurance: [employer] HLTH EXCHANGE Anticipated DC Date: 05-19-2019 Planned Disposition: Home External Planned Provider: : DCP follow-up note: Patient in agreement with discharge plan. No changes to plan. States she received her portable oxygen this weekend. I spoke with Rick with [facility] and clinical faxed. Case management will follow and assist as needed. Yudelka Denny DCP- Discharge Planning Updated by [id number]: Patti Wolfe on 05/20/19 1:[address] Patient Name: KAYLA MORRISON Admission Status: ER Accout number: [id number] Admission Date: 05-16-2019 : 1960 Admission Diagnosis:MALIGNANT NEOPLASM OF UNSP SITE OF UNSPECIFIED FEMALE B Attending: ELIO HAMMER Current LOS: 4 Anticipated DC Date: 05-19-2019 Planned Disposition: Home Primary Insurance: [employer] HLTH EXCHANGE Discharge Planning Comments: I CALLED [facility] AND FAXED THEM DOCUMENTS FOR PORTABLE 02. WAITING FOR CALL BACK FROM [facility]. Medical Laboratory Manager: Patti Wolfe DCP- Discharge Planning Updated by [id number]: Elisabet Contreras on 05/18/19 3:[address] DC PLAN: Return home with family and resumption of Care IV HH. ANTICIPATED DC NEEDS: Resumption Care [facility] HH. met with patient and her daughter to complete initial dc planning assessment. CM educated patient on the CM role and verbal consent given by patient to complete assessment. CM verified patient's address, phone number, and emergency contact phone numbers. Patient lives at home with her , two daughters and one granddaughter. Patient currently has [facility] and wishes to resume at discharge. [facility] form signed by patient for resumption of [facility]. Signed form placed in chart and signed form given to patient. At discharge patient plans to return home and feels this is a safe discharge. Patient denied further known discharge needs at this time. . Patient reports her or daughter will transport him/her home at time of discharge.CM will continue to follow and will assist as needed with dc plans/needs. Elisabet Contreras RN, [facility] DCP- Discharge Planning Updated by [email or web address]: Yudelka Denny on 05/18/19 3:[address] Updated clinical faxed to [facility]. CM will continue to follow and assist with discharge planning/needs. DCPIA - Discharge Planning Initial Assessment Updated by [id number]: Elisabet Contreras on 05/18/19 3:31 pm * Is the patient Alert and Oriented? Yes * How many steps to enter\exit or inside your home? two * PCP Dr. Astudillo * Pharmacy [facility] * Preadmission Environment Home with Family * ADLs Partial Dependent * Partial ADLs (Assistance needed) Bathing Dressing Transfers * Equipment Bedside Commode Oxygen Rolling Walker * List name and contact numbers for known caregivers / representatives who currently or will assist patient after discharge: Tomy Morrison - spouse - [phone] * Verbal permission to speak to the caregivers and representatives has been obtained from the patient. Yes * Community resources currently utilized Home Health * Please name any agencies selected above. [facility] - [facility] signed for resumption * Additional services required to return to the preadmission environment? No * Can the patient safely return to the preadmission environment? Yes * Has this patient been hospitalized within the prior 30 days at any hospital? No Last DP export: 05/20/19 1:15 p Patient Name: KAYLA MORRISON Page [phone] at 1324 All edits/amendments must be made on the electronic document DICTATION DATE: 05/21/19 1324 BAND SAWMILL OPERATOR: JER 05/21/19 1324 RPT#: [id number] DC DATE: STATUS: ADM IN [facility] [address] [place] [address] END OF REPORT
--- NOTE | 2019-05-21 14:30 | NUR ---
DISCHARGE EDUCATION PROVIDED BOTH WRITTEN AND VERBAL. VERBALIZED UNDERSTANDING. DENIES FURTHER QUESTIONS. LEFT CHEST PORT DEACCESSED WITH HEPARIN FLUSH. PATIENT AND DAUGHTER DENY FURTHER NEEDS. PATIENT DISCHARGED HOME WITH DAUGHTER WITH ALL BELONGINGS.
--- NOTE | 2019-05-23 14:07 | EC ---
PATIENT:KAYLA MORRISON DATE OF SERVICE: 05/16/19 SEX: F MEDICAL RECORD: [id number] DATE OF : 56 LOCATION:D.MS [address] AGE OF PATIENT: 58 ADMISSION DATE: 05/16/19 REFERRING PHYSICIAN: INTERPRETING PHYSICIAN: GRADY FOX MD ECHOCARDIOGRAM REPORT ECHO CHARGES 4 ECHO COMPLETE Date: 05/17/19 CLINICAL DIAGNOSIS: PLEURAL EFFUSION,DYSPNEA,BREAST CA WITH METS ECHOCARDIOGRAPHIC MEASUREMENTS (adult normal given) AC root (d.<3.7cm) 2.4 cm LV Septum d (<1.2 cm> 1.0 cm Valve Excursion 1.3 cm LV Septum (systole) 1.1 cm Left Atria (s.<4.0cm> 3.3 cm LVPW d(<1.2cm) 1.1 cm RV (d.<2.3cm) 3.9 cm LVPW (sytole) 1.4 cm LV diastole(<5.6CM) 3.6 cm MV E-F(>70mm/sec) cm LV systole 2.2 cm LVOT Diameter 1.5 cm MV exc.(>10mm) 1.8 cm Est.ejection fraction (50-75%) % DOPPLER: LVIT cm/sec A 74.0 cm/sec E 68.0 cm/sec LA cm/sec RVSP 36 mmHg LVOT 112 cm/sec AOP1/2T m/s Asc. Ao 137 cm/sec RVOT 93 cm/sec RA cm/sec PA 105 cm/sec AV Gradient Peak 7.51 mmHg AV Mean 4.04 mmHg AV Area 1.5 cm MV Gradient Peak 2.99 mmHg MV Mean 1.49 mmHg MV Area cm COMMENTS: Film Processing Shift Supervisor: Bebo CANTRELL Agricultural Sales Representative: 2 Dr. Degroot TAPE# PACS Pericardial Effusion Y DATE OF SERVICE: 05/17/2019 ECHOCARDIOGRAM FINDINGS: 1. Left ventricular chamber size is within normal limits. Left ventricular systolic function is normal. Overall ejection fraction estimated at 60%. 2. Left atrium, right atrium, right ventricle chamber size is within normal limits. ECHOCARDIOGRAM REPORT [id number] KAYLA MORRISON 3. Valvular structures have normal structure and motion. 4. Doppler interrogation reveals no significant valvular insufficiency or stenosis. 5. No evidence of pericardial effusion or left ventricular thrombus. TRANSINT:[id number] Voice Confirmation ID: [id number] DOCUMENT ID: [id number] GRADY FOX MD at 1407 CC: [id number] DICTATION DATE: 05/19/191742 LEATHER ETCHER: 05/19/192102 DIS IN 05/21/19 [facility] [address] [place] [id number]
--- NOTE | 2019-05-24 09:09 | MORECARE ---
CASE MANAGEMENT DISCHARGE SUMMARY PATIENT: KAYLA MORRISON UNIT: [id number] ADM DATE: 05/16/19 AGE: 58 : 56 SEX: F ROOM/BED: D.2222 AUTHOR: ARLEN CRAWFORD PHYSICIAN: REFERRING PHYSICIAN: ELIO HAMMER DO DATE OF SERVICE: 05/24/19 Discharge Plan Patient Name: KAYLA MORRISON Facility: [facility]:[place] : 1960 Planned Disposition: Home Anticipated Discharge Date: 05/19/19 Discharge Date: 05/21/2019 Expected LOS: 3 Initial Reviewer: [email or web address] Initial Review Date: 05/15/2019 Generated: 05/24/19 10:09 am Comments DCP- Discharge Planning Updated by [email or web address]: Yudelka Denny on 05/21/19 12:[address] Patient Name: KAYLA MORRISON Encounter No: [id number] : 1960 Primary Insurance: [employer] Anticipated DC Date: 05-19-2019 Planned Disposition: Home External Planned Provider: : DCP follow-up note: Patient in agreement with discharge plan. No changes to plan. States she received her portable oxygen this weekend. I spoke with Rick with [facility] and clinical faxed. Case management will follow and assist as needed. Yudelka Denny DCP- Discharge Planning Updated by [email or web address]: Patti Wolfe on 05/20/19 1:[address] Patient Name: KAYLA MORRISON Admission Status: ER Accout number: [id number] Admission Date: 05-16-2019 : 1960 Admission Diagnosis:MALIGNANT NEOPLASM OF RUSTP SITE OF UNSPECIFIED FEMALE B Attending: ELIO HAMMER Current LOS: 4 Anticipated DC Date: 05-19-2019 Planned Disposition: Home Primary Insurance: [employer] Discharge Planning Comments: I CALLED [facility] AND FAXED THEM DOCUMENTS FOR PORTABLE 02. WAITING FOR CALL BACK FROM [facility]. Band Saw Operator: Patti Wolfe DCP- Discharge Planning Updated by [email or web address]: Elisabet Contreras on 05/18/19 3:[address] DC PLAN: Return home with family and resumption of [facility]. ANTICIPATED DC NEEDS: Resumption [facility]. CM met with patient and her daughter to complete initial dc planning assessment. CM educated patient on the CM role and verbal consent given by patient to complete assessment. CM verified patient's address, phone number, and emergency contact phone numbers. Patient lives at home with her , two daughters and one granddaughter. Patient currently has [facility] and wishes to resume at discharge. [place] form signed by patient for resumption of [facility]. Signed form placed in chart and signed form given to patient. At discharge patient plans to return home and feels this is a safe discharge. Patient denied further known discharge needs at this time. . Patient reports her or daughter will transport him/her home at time of discharge.CM will continue to follow and will assist as needed with dc plans/needs. Elisabet Contreras RN, [facility] DCP- Discharge Planning Updated by [email or web address]: Yudelka Denny on 05/18/19 3:[address] Updated clinical faxed to [facility]. CM will continue to follow and assist with discharge planning/needs. DCPIA - Discharge Planning Initial Assessment Updated by [email or web address]: Elisabet Contreras on 05/18/19 3:31 pm * Is the patient Alert and Oriented? Yes * How many steps to enter\exit or inside your home? two * PCP Dr. Astudillo * Pharmacy [facility] * Preadmission Environment Home with Family * ADLs Partial Dependent * Partial ADLs (Assistance needed) Bathing Dressing Transfers * Equipment Bedside Commode Oxygen Rolling Walker * List name and contact numbers for known caregivers / representatives who currently or will assist patient after discharge: Tomy Morrison - spouse - [phone] * Verbal permission to speak to the caregivers and representatives has been obtained from the patient. Yes * Community resources currently utilized Home Health * Please name any agencies selected above. [facility] signed for resumption * Additional services required to return to the preadmission environment? No * Can the patient safely return to the preadmission environment? Yes * Has this patient been hospitalized within the prior 30 days at any hospital? No Last DP export: 05/21/19 12:24 p Patient Name: KAYLA MORRISON Page [id number] at 0909 All edits/amendments must be made on the electronic document DICTATION DATE: 05/24/19908 LABEL STITCHER: DM 05/24/19908 RPT#: [id number] DC DATE:05/21/19 STATUS: DIS [facility] [address] [facility] [place] [id number] END OF REPORT
[2019-06-20 12:09] LABS: FUNGUS MYCOLOGY CULTURE Final report (())
== END 2019-05-21 15:19 | disposition home or self-care (01) | DRG 597 ==
LOC: D.ER 14:48 → OBSVTIME 21:11 → D.MS 21:11
PROVIDERS: Family Medicine; General Practice; Internal Medicine Pulmonary Disease; Radiology Vascular & Interventional Radiology; ADMIT Family Medicine; ATTEND Family Medicine
PROC: 0W993ZZ Drainage of Right Pleural Cavity, Percutaneous Approach (ICD-10-PCS; principal; 2019-05-17 14:04)
DX: C50.919 Malignant neoplasm of unspecified site of unspecified female breast (principal); J96.01 Acute respiratory failure with hypoxia; J18.9 Pneumonia, unspecified organism; J91.0 Malignant pleural effusion; C78.7 Secondary malignant neoplasm of liver and intrahepatic bile duct; C79.51 Secondary malignant neoplasm of bone; J81.1 Chronic pulmonary edema; D68.32 Hemorrhagic disorder due to extrinsic circulating anticoagulants; D64.9 Anemia, unspecified; K59.00 Constipation, unspecified; I95.89 Other hypotension; R91.8 Other nonspecific abnormal finding of lung field; R00.0 Tachycardia, unspecified; R07.9 Chest pain, unspecified; Z86.711 Personal history of pulmonary embolism; Z79.01 Long term (current) use of anticoagulants; F41.9 Anxiety disorder, unspecified; R63.4 Abnormal weight loss; Z68.20 Body mass index [BMI] 20.0-20.9, adult; G89.3 Neoplasm related pain (acute) (chronic); R04.0 Epistaxis

== ENCOUNTER → 2019-05-25 20:29 | Outpatient (CLI) | payer BC ==
[~2019-05-25 20:29] MED LIST: AMOXICILLIN875 MG; CELEXA20 MG PO; ELIQUIS5 MG PO; GAVILAX510 GM PO; MORPHINE IMMEDI15 MG PO; MS CONTIN60 MG PO; NARCAN; OMNICEF300 MG PO; REGLAN10 MG PO; RITALIN10 MG PO; XELODA500 MG PO; ZOFRAN8 MG PO; [UNRECOGNIZED DRUG - OTHER] PO
[2019-05-25 20:44] LABS: HEMATOCRIT 29.7 % (36.0-48.0); HEMOGLOBIN 8.5 g/dL (12-16); MCHC 28.6 g/dL (31.0-37.0); MCV 97.7 fL (80.0-100.0); MEAN PLATELET VOLUME 11.9 fL (7.4-10.4); RBC 3.04 10x6/uL (4.00-5.40); RDW 21.6 % (11.5-14.5); WBC 12.7 10x3/uL (4.8-10.8)
[2019-05-25 20:48] LABS: PLATELET COUNT 477 10x3/uL (130-400)
[2019-05-25 21:15] LABS: LYMPHOCYTES 15 % (15-50); MONOCYTES 3 % (2-11); NEUTROPHILS 83 % (40-80); PLATELET ESTIMATE NORMAL
== END | disposition home or self-care (01) ==
LOC: D.LABREF 20:29
PROVIDERS: ATTEND Family Medicine
DX: D64.9 Anemia, unspecified (principal)